=== PATIENT | male | born 1960 ===

== ENCOUNTER 2020-07-18 07:41 | Day surgery (SDC) | payer OTHER ==
[2020-07-18] MEDS ORDERED: fentaNYL 100 MCG/2 ML SDV IV ONE (07:42)
[2020-07-18] MEDS ORDERED: Ondansetron 4 MG/2 ML SDV IVPUSH ONE (07:42)
[2020-07-18] MEDS ORDERED: Rocuronium 50 MG/5 ML Vial IV ONE (07:42)
[2020-07-18] MEDS ORDERED: Ketorolac 30 MG/ML SDV IVPUSH ONE (07:42)
[2020-07-18] MEDS ORDERED: Propofol 200 MG/20 ML SDV IV ONE (07:42)
[2020-07-18] MEDS ORDERED: Midazolam 1 MG/ML 2 ML SDV IV ONE (07:42)
[2020-07-18] MEDS ORDERED: Sodium Chloride 0.9% 10 ML Syringe FLUSH PRN (07:45)
[2020-07-18] MEDS ORDERED: Lactated Ringers 1,000 ML IV SCH (07:45)
[2020-07-18] MEDS ORDERED: ceFAZolin 2 GM in Premix Bag 1 BAG IV ONE (09:15)
[2020-07-18] MEDS ORDERED: Lidocaine 1% with EPINEPHrine 1:100,000 20 ML MDV INJECT ONE (09:45)
[2020-07-18] MEDS ORDERED: Bupivacaine 0.5% 50 ML MDV INJECT ONE (09:45)
--- NOTE | 2020-07-18 10:13 | PCM.OPNOTE ---
- General Post-Op/Procedure Note Date of Surgery/Procedure: 07/18/20 Operative Procedure(s): ventral hernia repair with mesh Findings: 2 cm defect midway between umbilicus and xiphoid process Pre Op Diagnosis: ventral hernia Post-Op Diagnosis: Same Anesthesia Technique: General LMA, Local (5 ml 1 % lido with epi/0.5% buvipicaine) Primary Surgeon: Sang Ricci Anesthesia Provider: Benoit Francisco Pathology: none Complications: None Condition: Good Free Text/Narrative:: see dictation # [id number]
[2020-07-18] MEDS ORDERED: Acetaminophen/HYDROcodone 325-5 MG Tab PO ONE (11:45)
[2020-07-18 12:05] VITALS: BP 142/101; PULSE 75
--- NOTE | 2020-07-18 17:10 | OR ---
DATE OF OPERATION: 07/18/2020 SURGEON: Sang Ricci MD PROCEDURE PERFORMED: Ventral hernia repair. PREOPERATIVE DIAGNOSIS: Ventral hernia and this repair was done with mesh. POSTOPERATIVE DIAGNOSIS: Ventral hernia and this repair was done with mesh. INDICATIONS FOR PROCEDURE: This is a 60-year-old white male who has a longstanding history of what appears to be a ventral hernia and it has caused some discomfort. He was offered and accepted open repair. FINDINGS: Intraoperative findings are as follows: A 2-cm defect was encountered approximately prison between the xiphoid process and the umbilicus. This was repaired with a Ventralex XT hernia patch. Lot #[id number], expiration date 02/01/2022, reference #[id number], which is a 6.2 cm diameter patch and 5 mL of 1:1 mixture of 1% lidocaine with epinephrine, 0.5% bupivacaine was used. DESCRIPTION OF PROCEDURE: After an excellent LMA anesthetic was administered, the patient was prepped and draped in usual sterile manner. Local was used to infiltrate the area over the planned incision site as well as the area lateral to the incision. A 4-cm vertical incision was carried out with a #10 scalpel blade. A combination of sharp and blunt dissection was carried out dissecting the hernia sac free from the surrounding structures. The fascia was divided superiorly. This allowed us to reduce the defect which consisted entirely preperitoneal fat into the abdominal cavity. After assuring no fatty adhesions to the anterior abdominal wall, the mesh was inserted, and with tension applied to the tails, was sewn in horizontally as this is the natural way that the defect appeared and was closed with a running 0 prolene. The tails were excised and the fascial defect was completely closed. The area was irrigated. The subcu fat was approximated with a running 3-0 Vicryl and jadiel were used to approximate the skin. Needle, sponge, and instrument counts were correct. The patient was taken to recovery in good condition. /[id number] /MODL
== END 2020-07-18 11:53 | disposition home or self-care (01) ==
LOC: FB.SDS 07:41
PROVIDERS: ATTEND Surgery
DX: K43.9 Ventral hernia without obstruction or gangrene (principal); N40.0 Benign prostatic hyperplasia without lower urinary tract symptoms; Z79.899 Other long term (current) drug therapy; Z98.890 Other specified postprocedural states; Z87.891 Personal history of nicotine dependence
CPT/HCPCS: 00750; 49560; 49568; 94150; A9270; C1781; J0690; J1885; J2250; J2405; J2704; J3010; J3490; J7120